=== PATIENT | male | born 1980 | race Caucasian/White ===

== ENCOUNTER 2017-01-20 20:26 | Emergency (ER) | payer BC, OTHER ==
[2017-01-20 20:30] VITALS: BP 140/86; PULSE 93; TEMP 97; BMI 40.1
[2017-01-20] MEDS ORDERED: SODIUM CHLORIDE 0.9% 1000 ML INFUS.BAG IV ONE ×2 (20:52→23:07)
[2017-01-20] MEDS ORDERED: KETOROLAC TROMETHAMINE 30 MG/1 ML VIAL IVPUSH PRN (20:53)
--- NOTE | 2017-01-20 21:04 | PDOC ---
History of Present Illness - General Chief Complaint: Pain Stated Complaint: PAIN Time Seen by Provider: 01/20/17 20:46 History Source: Patient - History of Present Illness Initial Comments: 01/20/17 21:04 Patient is a 36 y.o. male with a PMH of nephrolithiasis who presents with a 2 day h/o sharp non-radiating LLQ pain. Patient states the pain started when he woke up two days previous and has been increasing in severity prompting his visit to the ED. Patient denies any associated fevers, chills, vomiting, nausea , constipation, diarrhea or increased urgency, frequency or hematuria. Patient notes he is tolerating PO intake, however he has a decreased appetite 2/2 to pain. Patient states this pain is consistent with his previous nephrolithiasis pain and notes placement of ureteral stent as well as lithotripsy on prior occasion. NKDA Surgical: Ureteral stent placement Social: 1-2 cigarettes daily, denies alcohol, denies recreational drugs PMD: Dr. George Churchill Past History - Past Medical History Allergies/Adverse Reactions: Allergies Allergy/AdvReac Type Severity Reaction Status Date / Time No Known Allergies Allergy Verified 01/20/17 20:30 Home Medications: Ambulatory Orders NK [No Known Home Medication] 01/20/17 Disorders: Yes (RENAL STONES) - Suicide/Smoking/Psychosocial Hx Smoking Status: No Smoking History: Never smoked Number of Cigarettes Smoked Daily: 0 Review of Systems - Review of Systems Constitutional: No: Chills, Fever Respiratory: No: Shortness of Breath Cardiac (ROS): No: Chest Pain ABD/GI: Yes: Abdominal cramping. No: Constipated, Diarrhea, Nausea, Rectal Bleeding, Vomiting : No: Burning, Dysuria, Frequency, Flank Pain, Urgency *Physical Exam - Vital Signs Last Vital Signs Temp Pulse Resp BP Pulse Ox 97 F L 93 H 18 140/86 99 01/20/17 20:27 01/20/17 20:27 01/20/17 20:27 01/20/17 20:27 01/20/17 20:27 - Physical Exam General Appearance: Yes: Nourished, Obese Respiratory/Chest: positive: Lungs Clear Cardiovascular: positive: S1, S2 Gastrointestinal/Abdominal: positive: Tender (LLQ tenderness ), Soft, Decreased BS. negative: Rebound, Tenderness, Hernia, Mass Musculoskeletal: negative: CVA Tenderness (R), CVA Tenderness (L) Extremity: positive: Normal Capillary Refill, Normal Inspection Neurologic: positive: necktie turner II-XII NML intact, Fully Oriented, Alert, Motor Strength 07/29 ED Treatment Course - LABORATORY CBC & Chemistry Diagram: 01/20/17 21:15 01/20/17 21:15 Medical Decision Making - Medical Decision Making 01/20/17 22:17 Patient is a 36 y.o. male who presents with a 2 day h/o sharp LLQ abdominal pain that radiates to his groin. On PE, patient is hemodynamically stable and has significant TTP in the LLQ but no flank pain and no guarding, rebound, or mass. Patient denies any associated /GI symptoms. As patient has a h/o nephrolithiasis initial clinical suspicion for nephrolithiasis is high, less likely are testicular torsion and hernia (no palpable mass). PLAN: 1. CBC, CMP 2. UA 3. Spiral CT 4. Toradol for pain control 01/20/17 23:14 CT scan shows 2 non-obstructing stones (2-3 mm; 8-9 mm) excluding nephrolithiasis, also Cr 1.2 - no GERARDO; UA/Urine culture pending. 01/21/17 04:42 UA nitrite (-), blood (-), leukocyte esterase pending. Patient discharged with urology follow up and return precautions. *DC/Admit/Observation/Transfer Diagnosis at time of Disposition: Abdominal pain - Discharge Dispostion Disposition: HOME Condition at time of disposition: Good Admit: No - Referrals Referrals: George Churchill [Primary Care Provider] - Genaro Santana MD [Staff Physician] - - Patient Instructions Printed Discharge Instructions: Kidney Stones -- Adult, Percutaneous Nephrolithotomy or Nephrolithotripsy Additional Instructions: Please make an appointment for evaluation with a urologist for further evaluation of your kidney stones. Please return to the Emergency Department for any worsening or concerning symptoms. - Post Discharge Activity Forms/Work/School Notes: Back to Work
[2017-01-20] MEDS ORDERED: KETOROLAC TROMETHAMINE 30 MG/1 ML VIAL ONE (21:08)
[2017-01-20 22:34] LABS: BASOPHIL 0.3 % (0-2.0); EOSINOPHIL 2.7 % (0-4.5); MCH 29.1 pg (25.7-33.7); MCHC 33.6 g/dl (32.0-35.9); MEAN CELL VOLUME 86.6 fl (80-96); NEUTROPHILS 58.3 % (42.8-82.8); PLATELET COUNT 294 K/MM3 (134-434)
[2017-01-20 22:50] LABS: ANION GAP 7 (8-16); BILIRUBIN,TOTAL 1.2 mg/dL (0.2-1.0); CALCIUM 8.7 mg/dL (8.5-10.1); CO2 27 mmol/L (21-32); CREATININE 1.2 mg/dL (0.7-1.3); GLUCOSE,RANDOM 90 mg/dL (74-106); SGOT/AST 55 U/L (15-37); SGPT/ALT 97 U/L (12-78)
[2017-01-20 22:51] LABS: ALK PHOS 90 U/L (45-117); TOT PROT 7.9 g/dl (6.4-8.2)
[2017-01-21 00:28] LABS: URINE APPEARANCE SLCLOUDY; URINE BILIRUBIN NEGATIVE (NEGATIVE); URINE BLOOD NEGATIVE (NEGATIVE); URINE COLOR YELLOW; URINE GLUCOSE (UA) NEGATIVE (NEGATIVE); URINE KETONE NEGATIVE (NEGATIVE); URINE NITRITE NEGATIVE (NEGATIVE); URINE PROTEIN NEGATIVE (NEGATIVE); URINE UROBILINOGEN NEGATIVE mg/dL (0.2-1.0)
[2017-01-21 12:04] LABS: URINE LEUK ESTERASE Negative (NEGATIVE)
== END 2017-01-21 03:30 | disposition home or self-care (01) ==
LOC: JER 20:26
PROC: 3E0333Z Introduction of Anti-inflammatory into Peripheral Vein, Percutaneous Approach (ICD-10-PCS; principal; 2017-01-20)
DX: N20.0 Calculus of kidney (principal); Z87.442 Personal history of urinary calculi
CPT/HCPCS: 36415; 74176; 80053; 81003; 85025; 87086; 99283-25

== ENCOUNTER 2018-03-08 22:56 | Emergency (ER) | payer BC ==
[2018-03-08 23:05] VITALS: BP 148/73; PULSE 83; TEMP 97.3; BMI 40.1
--- NOTE | 2018-03-08 23:18 | PDOC ---
History of Present Illness - General Chief Complaint: Pain, Acute Stated Complaint: RIGHT SIDE PAIN Time Seen by Provider: 03/08/18 23:17 Past History - Past Medical History Allergies/Adverse Reactions: Allergies Allergy/AdvReac Type Severity Reaction Status Date / Time No Known Allergies Allergy Verified 03/08/18 23:06 Home Medications: Ambulatory Orders NK [No Known Home Medication] 01/20/17 COPD: No Disorders: Yes (RENAL STONES) - Suicide/Smoking/Psychosocial Hx Smoking Status: No Smoking History: Never smoked Have you smoked in the past 12 months: No Number of Cigarettes Smoked Daily: 0 Information on smoking cessation initiated: No Hx Alcohol Use: No Drug/Substance Use Hx: No *Physical Exam - Vital Signs Last Vital Signs Temp Pulse Resp BP Pulse Ox 97.3 F L 83 16 148/73 100 03/08/18 23:03 03/08/18 23:03 03/08/18 23:03 03/08/18 23:03 03/08/18 23:03 Moderate Sedation - Procedure Monitoring Vital Signs: Procedure Monitoring Vital Signs Temperature 97.3 F L 03/08/18 23:03 Pulse Rate 83 03/08/18 23:03 Respiratory Rate 16 03/08/18 23:03 Blood Pressure 148/73 03/08/18 23:03 O2 Sat by Pulse Oximetry (%) 100 03/08/18 23:03 *DC/Admit/Observation/Transfer - Referrals Referrals: George Churchill [Primary Care Provider] - - Patient Instructions - Post Discharge Activity
--- NOTE | 2018-03-08 23:43 | PDOC ---
Attending Attestation - HPI HPI: 03/08/18 23:46 The patient is a 37 year old male, with a significant PMH of kidney stones, who presents to the emergency department with 2 days of intermittent right sided flank pain. The patient describes the right sided flank pain as sharp, rated 8/ 10 in intensity, non radiating, with associated nausea, dysuria and frequency. The patient states he took Advil for the right sided flank pain with minimal relief so he decided to come to the ED for evaluation. The patient reports a history of kidney stones for which he states feels exactly the same. The patient denies chest pain, shortness of breath, headache and dizziness. Denies fever, chills, vomit, diarrhea and constipation. Denies urgency and hematuria. Allergies: NKA Documentation prepared by Gamal Reinoso, acting as medical housekeeper for Harry Mandujano MD. <Gamal Reinoso - Last Filed: 03/08/18 23:46> - Resident Resident Name: Lima Estrada - ED Attending Attestation I have performed the following: I have examined & evaluated the patient, The case was reviewed & discussed with the resident, I agree w/resident's findings & plan, Exceptions are as noted - Physicial Exam PE: 03/09/18 00:35 Patient is awake and alert, morbidly obese, in mild distress Normocephalic, atraumatic PERRLA, EOMI, no scleral icterus CTA RRR Abdomen soft, right lower quadrant tenderness is noted, + small umbilical hernia , easily reducible; no guarding or rebound; no CVA tenderness bilaterally no abnormality; - Medical Decision Making 03/09/18 00:36 37-year-old male with history of nephrolithiasis presents with right lower quadrant pain radiating to the right flank. Differential diagnosis includes nephrolithiasis versus acute appendicitis versus colitis. We'll administer Toradol, will hydrate; we'll obtain CT that and pelvis. Will reassess. <Harry Mandujano - Last Filed: 03/09/18 00:36>
--- NOTE | 2018-03-08 23:43 | PDOC ---
History of Present Illness - General Chief Complaint: Pain, Acute Stated Complaint: RIGHT SIDE PAIN Time Seen by Provider: 03/08/18 23:17 - History of Present Illness Initial Comments: 03/08/18 23:39 Patient is a 37 year old male with past medical history of bilateral nephrolithiais s/p ?right ureteral stent placement and lithotripsy about 15 years ago, presented with 2 day history of RLQ pain radiating to the right flank. Patient was seen a year ago at the ED for LLQ pain, where spiral CT was done which showed nonobstructive bilateral nephrolithiasis. He was discharged with instructions to follow-up with the urologist, to which patient was not able to do as pain resolved spontaneously. Two days ago, patient noted 8/10 sharp RLQ pain radiating to the right flank area. Denies fever, chills, nausea, vomiting, chest pain, SOB, palpitations, diarrhea, constipation, urinary symptoms. Past History - Past Medical History Allergies/Adverse Reactions: Allergies Allergy/AdvReac Type Severity Reaction Status Date / Time No Known Allergies Allergy Verified 03/08/18 23:06 Home Medications: Ambulatory Orders Ibuprofen [Motrin -] 600 mg PO QID PRN #12 tablet 03/09/18 COPD: No Disorders: Yes (RENAL STONES) - Suicide/Smoking/Psychosocial Hx Smoking Status: No Smoking History: Never smoked Have you smoked in the past 12 months: No Number of Cigarettes Smoked Daily: 0 Information on smoking cessation initiated: No Hx Alcohol Use: No Drug/Substance Use Hx: No Review of Systems - Review of Systems Constitutional: No: Chills, Fever, Weakness HEENTM: No: Recent change in vision, Nose Congestion, Difficulty Swallowing Respiratory: No: Cough, Shortness of Breath Cardiac (ROS): No: Chest Pain, Lightheadedness, Palpitations ABD/GI: No: Constipated, Diarrhea, Nausea, Vomiting : No: Burning, Dysuria, Discharge *Physical Exam - Vital Signs Last Vital Signs Temp Pulse Resp BP Pulse Ox 97.3 F L 83 16 148/73 100 03/08/18 23:03 03/08/18 23:03 03/08/18 23:03 03/08/18 23:03 03/08/18 23:03 - Physical Exam Comments: 03/08/18 23:57 General: awake, alert, oriented, not in acute distress Head: no signs of head trauma HEENT: PERRLA, EOMI, sclerae anicteric, no nasal discharge, non-erythematous oropharynx, moist mucous membranes Neck: soft, supple, trachea midline, without thyroid enlargement Lungs: clear to auscultation bilaterally Heart: regular rate and rhythm, normal S1/S2, no m,r,g Abdomen: soft, obese, +RLQ tenderness on deep palpation, nondistended, NABS, no guarding, +Right flank tenderness Ext: +2 pulses, no peripheral edema, cyanosis or clubbing Moderate Sedation - Procedure Monitoring Vital Signs: Procedure Monitoring Vital Signs Temperature 97.3 F L 03/08/18 23:03 Pulse Rate 83 03/08/18 23:03 Respiratory Rate 16 03/08/18 23:03 Blood Pressure 148/73 03/08/18 23:03 O2 Sat by Pulse Oximetry (%) 100 03/08/18 23:03 ED Treatment Course - LABORATORY CBC & Chemistry Diagram: 03/09/18 00:15 03/09/18 00:15 Medical Decision Making - Medical Decision Making 03/09/18 00:09 Patient is a 37 year old male with past medical history of bilateral nephrolithiasis presented with 2-day history of RLQ pain radiating to the right flank. DDx include but not limited to nephrolithiasis, appendicitis, SBO CBC, CMP UA, urine culture spiral CT IV ketorolac 15 mg IV NS 03/09/18 05:[address]- 8mm obstructing stone on the ureterovesical junction Iv morphine given Patient reported minimal pain. Will call urology for dispo. 03/09/18 05:[address] Santana, urology television anchor. Patient okay for dispo. Will see patient in his office today. *DC/Admit/Observation/Transfer Diagnosis at time of Disposition: Nephrolithiasis - Discharge Dispostion Disposition: HOME Condition at time of disposition: Stable Decision to Admit order: No - Prescriptions Prescriptions: Ibuprofen [Motrin -] 600 mg PO QID PRN #12 tablet PRN Reason: Pain - Referrals Referrals: George Churchill [Primary Care Provider] - Genaro Santana MD [Staff Physician] - (Spoke to Dr. Hidalgo earlier at the ED. Scheduled patient for follow-up today. ) - Patient Instructions Printed Discharge Instructions: Kidney Stones -- Adult Additional Instructions: You were seen because you had belly pain. CAT scan showed that you have a stone obstructing the urinary tract. Take Motrin every 6 hours as needed for pain. Follow-up with the urologist, Dr. Santana, today at his office. Call 911 or go to the ED if with any worsening belly pain, fever, chills, headache, dizziness, shortness of breath, chest pain or any new concerns noted. - Post Discharge Activity Forms/Work/School Notes: Back to Work
[2018-03-08] MEDS ORDERED: KETOROLAC TROMETHAMINE 15 MG/ML VIAL IVPUSH ONE (23:50)
[2018-03-08] MEDS ORDERED: SODIUM CHLORIDE 1,000 ML IV STA (23:58)
[2018-03-08] MEDS ORDERED: KETOROLAC TROMETHAMINE 15 MG/ML VIAL ONE (23:59)
[2018-03-09] MEDS ORDERED: KETOROLAC TROMETHAMINE 15 MG/ML VIAL ONE (00:01)
[2018-03-09 01:09] LABS: BASO % 0.2 % (0-2.0); EOS % 3.9 % (0-4.5); HEMATOCRIT 40.5 % (35.4-49); HEMOGLOBIN 13.8 GM/dL (11.7-16.9); LYMPH % 26.6 % (8-40); MCHC 34.1 g/dl (32.0-35.9); MEAN CELL VOLUME 87.8 fl (80-96); MEAN PLT VOLUME 8.1 fl (7.5-11.1); MONO % 11.1 % (3.8-10.2); NEUT % 58.2 % (42.8-82.8); PLATELET COUNT 269 K/MM3 (134-434); RBC 4.61 M/mm3 (4.00-5.60); RDW 13.6 % (11.9-15.9); WHITE BLOOD COUNT 13.1 K/mm3 (4.0-10.0)
[2018-03-09 01:35] LABS: ALBUMIN 3.5 g/dl (3.4-5.0); ALK PHOS 134 U/L (45-117); ANION GAP 7 MMOL/L (8-16); BILIRUBIN,TOTAL 0.4 mg/dL (0.2-1); BLOOD UREA NITROGEN 11 mg/dL (7-18); CALCIUM 8.7 mg/dL (8.5-10.1); CHLORIDE 104 mmol/L (98-107); CO2 27 mmol/L (21-32); CREATININE 1.2 mg/dL (0.55-1.3); GLUCOSE,RANDOM 170 mg/dL (74-106); POTASSIUM 4.3 mmol/L (3.5-5.1); SGOT/AST 43 U/L (15-37); SGPT/ALT 70 U/L (13-61); SODIUM 138 mmol/L (136-145); TOT PROT 7.3 g/dl (6.4-8.2)
[2018-03-09] MEDS ORDERED: morphine CARPU-JECT 4 MG/1 ML DISP.SYRIN IVPUSH ONE (02:18)
[2018-03-09] MEDS ORDERED: morphine SULFATE 4 MG/ML VIAL ONE (02:29)
[2018-03-09 04:10] LABS: URINE APPEARANCE CLEAR; URINE BILIRUBIN NEGATIVE (<2.0 mg/dL); URINE COLOR YELLOW; URINE GLUCOSE (UA) NEGATIVE (NEGATIVE); URINE KETONE NEGATIVE (NEGATIVE); URINE LEUK ESTERASE NEGATIVE (NEGATIVE); URINE NITRITE NEGATIVE (NEGATIVE); URINE PROTEIN NEGATIVE (NEGATIVE); URINE UROBILINOGEN NEGATIVE mg/dL (0.2-1.0)
== END 2018-03-09 06:44 | disposition home or self-care (01) ==
LOC: JER 22:56
PROC: 3E0333Z Introduction of Anti-inflammatory into Peripheral Vein, Percutaneous Approach (ICD-10-PCS; principal; 2018-03-08)
PROC: 3E033NZ Introduction of Analgesics, Hypnotics, Sedatives into Peripheral Vein, Percutaneous Approach (ICD-10-PCS; 2018-03-08)
PROC: 3E0337Z Introduction of Electrolytic and Water Balance Substance into Peripheral Vein, Percutaneous Approach (ICD-10-PCS; 2018-03-08)
DX: N20.0 Calculus of kidney (principal)
CPT/HCPCS: 36415; 74176; 80053; 81003; 85025; 87086; 99281-25; J7030

== ENCOUNTER 2019-05-06 22:04 | Emergency (ER) | payer BC ==
[2019-05-06 22:27] VITALS: TEMP 98.2; BMI 44.8
--- NOTE | 2019-05-07 00:06 | PDOC ---
*Physical Exam - Vital Signs Last Vital Signs Temp Pulse Resp BP Pulse Ox 98.2 F 80 19 127/76 100 05/06/19 22:24 05/06/19 22:24 05/06/19 22:24 05/06/19 22:24 05/06/19 22:24 ED Treatment Course - LABORATORY CBC & Chemistry Diagram: 05/07/19 01:30 05/07/19 00:26 Medical Decision Making - Medical Decision Making 05/07/19 00:05 Patient seen by the advanced practice provider under my supervision. Ancillary testing reviewed as necessary. I agree with plan as outlined by the advanced practice provider. Discharge - Discharge Information Problems reviewed: Yes Clinical Impression/Diagnosis: Chest pain Qualifiers: Chest pain type: unspecified Qualified Code(s): R07.9 - Chest pain, unspecified Disposition: HOME - Follow up/Referral Referrals: George Churchill [Primary Care Provider] - - Patient Discharge Instructions Patient Printed Discharge Instructions: DI for Chest Pain Additional Instructions: It is very important that you follow-up with your electric frying pan repairer/PCP as soon as possible.-year-old work-up was negative for any acute heart problems Return to the emergency room for any worsening symptoms - Post Discharge Activity Work/Back to School Note: Back to Work
[2019-05-07] MEDS ORDERED: ASPIRIN 81 MG CHEWABLE TABLETS PO ONE (00:26)
--- NOTE | 2019-05-07 00:26 | PDOC ---
History of Present Illness - General Chief Complaint: Chest Pain Stated Complaint: CHEST PAIN Time Seen by Provider: 05/07/19 00:04 History Source: Patient - History of Present Illness Initial Comments: 05/07/19 00:37 38-year-old male with no past medical history complaining of midsternal chest pain for the last 2 days. Patient reports slight nausea. Denies nausea vomiting vomiting, dizziness, diaphoresis, trauma or injury, heavy lifting. No past medical history Past History - Past Medical History Allergies/Adverse Reactions: Allergies Allergy/AdvReac Type Severity Reaction Status Date / Time No Known Allergies Allergy Verified 03/08/18 23:06 Home Medications: Ambulatory Orders Ibuprofen [Motrin -] 600 mg PO QID PRN #12 tablet 03/09/18 COPD: No Disorders: Yes (RENAL STONES) - Psycho Social/Smoking Cessation Hx Smoking Status: No Smoking History: Never smoked Have you smoked in the past 12 months: No Number of Cigarettes Smoked Daily: 0 Hx Alcohol Use: No Drug/Substance Use Hx: No *Physical Exam - Vital Signs Last Vital Signs Temp Pulse Resp BP Pulse Ox 98.2 F 80 19 127/76 100 05/06/19 22:24 05/06/19 22:24 05/06/19 22:24 05/06/19 22:24 05/06/19 22:24 - Physical Exam General Appearance: Yes: Appropriately Dressed Respiratory/Chest: positive: Lungs Clear, Normal Breath Sounds. negative: Chest Tender Cardiovascular: positive: Regular Rhythm, Regular Rate Gastrointestinal/Abdominal: positive: Normal Bowel Sounds, Soft Extremity: positive: Normal Capillary Refill, Normal Inspection, Normal Range of Motion Integumentary: positive: Normal Color, Dry, Warm Neurologic: positive: Fully Oriented, Alert, Normal Mood/Affect ED Treatment Course - LABORATORY CBC & Chemistry Diagram: 05/07/19 01:30 05/07/19 00:26 Medical Decision Making - Medical Decision Making A: chest enid P: cbc cmp cardiac EKG: NSR chest xray: neg official read pending Discharge - Discharge Information Problems reviewed: Yes Clinical Impression/Diagnosis: Chest pain Qualifiers: Chest pain type: unspecified Qualified Code(s): R07.9 - Chest pain, unspecified Condition: Stable Disposition: HOME - Follow up/Referral Referrals: George Churchill [Primary Care Provider] - - Patient Discharge Instructions Patient Printed Discharge Instructions: DI for Chest Pain Additional Instructions: It is very important that you follow-up with your central scheduler/PCP as soon as possible.-year-old work-up was negative for any acute heart problems Return to the emergency room for any worsening symptoms - Post Discharge Activity Work/Back to School Note: Back to Work
[2019-05-07 01:47] LABS: HEMOGLOBIN 14.6 GM/dL (11.7-16.9)
[2019-05-07 01:50] LABS: BASO % 0.2 % (0-2.0); EOS % 3.4 % (0-4.5); HEMATOCRIT 43.2 % (35.4-49); LYMPH % 34.6 % (8-40); MCH 29.7 pg (25.7-33.7); MCHC 33.9 g/dl (32.0-35.9); MEAN CELL VOLUME 87.7 fl (80-96); MEAN PLT VOLUME 7.7 fl (7.5-11.1); MONO % 9.4 % (3.8-10.2); NEUT % 52.4 % (42.8-82.8); PLATELET COUNT 277 K/MM3 (134-434); RBC 4.93 M/mm3 (4.00-5.60); RDW 13.7 % (11.9-15.9); WHITE BLOOD COUNT 11.5 K/mm3 (4.0-10.0)
[2019-05-07 02:03] LABS: INR 0.97 (0.83-1.09); PROTHROMBIN TIME (PATIENT) 11.5 SEC (9.7-13.0)
[2019-05-07 02:06] LABS: ACTIVATED PTT 33.3 SECONDS (25.2-36.5)
[2019-05-07 02:31] LABS: ALBUMIN 3.7 g/dl (3.4-5.0); ALK PHOS 79 U/L (45-117); ANION GAP 7 MMOL/L (8-16); BILIRUBIN,TOTAL 0.7 mg/dL (0.2-1); BLOOD UREA NITROGEN 11.8 mg/dL (7-18); CALCIUM 8.7 mg/dL (8.5-10.1); CHLORIDE 104 mmol/L (98-107); CO2 27 mmol/L (21-32); CREATININE 1.1 mg/dL (0.55-1.3); GLUCOSE,RANDOM 89 mg/dL (74-106); MAGNESIUM 1.9 mg/dL (1.8-2.4); POTASSIUM 3.9 mmol/L (3.5-5.1); SGOT/AST 25 U/L (15-37); SGPT/ALT 44 U/L (13-61); SODIUM 138 mmol/L (136-145); TOT PROT 7.5 g/dl (6.4-8.2)
[2019-05-07 03:26] VITALS: BP 124/80; PULSE 82
--- NOTE | 2019-05-07 13:02 | EKG ---
Test Reason : Blood Pressure : / mmHG Vent. Rate : 073 BPM Atrial Rate : 073 BPM P-R Int : 134 ms QRS Dur : 088 ms QT Int : 378 ms P-R-T Axes : 035 029 018 degrees QTc Int : 416 ms NORMAL SINUS RHYTHM NORMAL ECG Confirmed by James Carver MD ([id number]) on 05/07/2019 1:01:56 PM Referred By: Confirmed By:James Carver MD
== END 2019-05-07 03:25 | disposition home or self-care (01) ==
LOC: JER 22:04
DX: R07.9 Chest pain, unspecified (principal)
CPT/HCPCS: 36415; 71046-TC-FY; 80053; 82550; 83735; 84484; 85025; 85610; 85730; 93005; 93010; 99285-25

== ENCOUNTER 2019-10-19 11:02 | Emergency (ER) | payer BC ==
[2019-10-19 11:13] VITALS: BP 138/82; PULSE 67; TEMP 97.8; BMI 42.0
[2019-10-19] MEDS ORDERED: ACETAMINOPHEN 325 MG TABLET (FP) PO ONE (11:47)
--- NOTE | 2019-10-19 12:14 | PDOC ---
History of Present Illness - General Chief Complaint: Chest Pain Stated Complaint: CHEST PAIN Time Seen by Provider: 10/19/19 11:41 History Source: Patient Exam Limitations: No Limitations - History of Present Illness Initial Comments: 10/19/19 11:58 39M PMH sleep apnea, kidney stones, obesity p/w acute on chronic chest pain. Has had negative work up by PCP, cards, rheum, neuro, and he want to make a GI appointment. Has had this pain for 5 months. Intermittent, left anterior chest, aching, occasional "electric waves" that last for a few seconds, sometimes associated with SOB and left arm "muscle" pain. 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 Dad from [place] at 63. Denies n/v, diaphoresis, leg pain. GENERAL/CONSTITUTIONAL: No fever or chills. No weakness. HEAD, EYES, EARS, NOSE AND THROAT: No change in vision. No ear pain or discharge. No sore throat. CARDIOVASCULAR: +chest pain and SOB RESPIRATORY: No cough, wheezing, or hemoptysis. GASTROINTESTINAL: No nausea, vomiting, diarrhea or constipation. GENITOURINARY: No dysuria, frequency, or change in urination. MUSCULOSKELETAL: No neck or back pain. SKIN: No rash NEUROLOGIC: No headache, vertigo, loss of consciousness, or change in strength/sensation. ENDOCRINE: No increased thirst. No abnormal weight change HEMATOLOGIC/LYMPHATIC: No anemia, easy bleeding, or history of blood clots. ALLERGIC/IMMUNOLOGIC: No hives or skin allergy. PE Vital Signs Period Temp Pulse Resp BP Sys/Louise Pulse Ox Last 24 Hr 97.8 F 67 18 138/82 99 GENERAL: Awake, alert, and fully oriented, in no acute distress HEAD: No signs of trauma, normocephalic, atraumatic EYES: PERRLA, EOMI, sclera anicteric, conjunctiva clear ENT: Auricles normal inspection, hearing grossly normal, nares patent, oropharynx clear without exudates. Moist mucosa NECK: Normal ROM, supple, no lymphadenopathy, JVD, or masses LUNGS: No distress, speaks full sentences, clear to auscultation bilaterally HEART: Regular rate and rhythm, normal S1 and S2, no murmurs, rubs or gallops, peripheral pulses normal and equal bilaterally. Chest Wall: reproducible tenderness on anterior left chest ABDOMEN: Soft, nontender, normoactive bowel sounds. No guarding, no rebound. No masses EXTREMITIES : Normal inspection, Normal range of motion, no edema. No clubbing or cyanosis. Right arm not swollen or tender. NEUROLOGICAL: ormal speech, normal gait, no focal sensorimotor deficits SKIN: Warm, Dry, normal turgor, no rashes or lesions noted A/P 39M PMH sleep apnea, kidney stones, obesity p/w acute on chronic chest pain. EKG NSR w/o ischemic changes. History not concerning for cardiac CP, and pain reproducible with palpation. -DC with f/u and return precautions 10/19/19 12:20 Past History - Medical History Allergies/Adverse Reactions: Allergies Allergy/AdvReac Type Severity Reaction Status Date / Time No Known Allergies Allergy Verified 10/19/19 11:09 Home Medications: Ambulatory Orders Ibuprofen [Motrin -] 600 mg PO QID PRN #12 tablet 03/09/18 COPD: No Disorders: Yes (RENAL STONES) - Psycho-Social/Smoking History Smoking Status: No Smoking History: Former smoker Have you smoked in the past 12 months: No Number of Cigarettes Smoked Daily: 1 If you are a former smoker, when did you quit?: 2009 Information on smoking cessation initiated: No - Substance Abuse Hx (Audit-C & DAST Scrn) How often the patient has a drink containing alcohol: Never Score: In Men: 4 or > Positive; In Women: 3 or > Positive: 0 Screen Result (Pos requires Nsg. Audit-10AR): Negative In the last yr the pt used illegal drug/Rx for NonMed reason: No Score: Yes response is considered Positive: 0 Screen Result (Positive result requires Nsg. DAST-10): Negative *Physical Exam - Vital Signs Last Vital Signs Temp Pulse Resp BP Pulse Ox 97.8 F 67 18 138/82 99 10/19/19 11:09 10/19/19 11:09 10/19/19 11:09 10/19/19 11:09 10/19/19 11:09 Discharge - Discharge Information Problems reviewed: Yes Clinical Impression/Diagnosis: Chest pain Qualifiers: Chest pain type: other chest pain Qualified Code(s): R07.89 - Other chest pain; R07.8 - Other chest pain Condition: Good Disposition: HOME - Admission No - Follow up/Referral Referrals: Lupillo Amin MD [Primary Care Provider] - - Patient Discharge Instructions Patient Printed Discharge Instructions: DI for Atypical Chest Pain Additional Instructions: You were seen in the ER for chest pain. You stated this was the same pain you have had for 5 months, and it was reproducible when we pressed on it. Your EKG was normal. We do not know what is causing your pain. You should follow up with your primary doctor and go for your cardiac MRI. Please seek emergent care if you have persistent or worsening symptoms - Post Discharge Activity
--- NOTE | 2019-10-19 12:29 | PDOC ---
Documentation entered by Thony Madera SCRIBE, acting as scribe for Arti Stock MD. Arti Stock MD: This documentation has been prepared by the Cassy walters Aaron, SCRIBE, under my direction and personally reviewed by me in its entirety. I confirm that the documentation accurately reflects all work, treatment, procedures, and medical decision making performed by me. Attending Attestation - Resident Resident Name: RocHaim - ED Attending Attestation I have performed the following: I have examined & evaluated the patient, The case was reviewed & discussed with the resident, I agree w/resident's findings & plan, Exceptions are as noted - HPI HPI: 10/19/19 12:09 The patient is a 39 year old male with a significant PMH of sleep apnea and kidney stones who presents to the emergency department for chest pain x5 months. Patient describes pain as beginning 5 months ago and has since been seen by a quality control operator, neurologist, and callisthenics instructor. Patient claims pain is non-exer tional, unchanged for the past 5 months and does not change with position or rest. Echo and stress test were both negative. Patient also endorses L arm pain alleviated by moving and massage. Patient has f/u with a quality control operator for a cardiac MRI. Patient reports pain is intermittent. The patient denies vomiting and diaphoresis. Patient denies other related symptoms. Allergies: NKDA PCP: Dr. Mark Amin - Physicial Exam PE: 10/19/19 12:24 General: comfortable appearing Chest: CTAB, good air entry, no wheezes rales or rhonchi, + L upper anterior chest wall tenderness reproduces complaint CVS: + s1 s2, RRR no m/r/g - Medical Decision Making 10/19/19 12:27 39 yo M with atypical chest pain, multiple negative workups and patient has scheduled cardiac MRI with quality control operator due to persistence of symptoms and obesity, likely msk pain, doubt ACS as pain is atypical, workup thus far from outside providers negative and EKG NSR without ischemic changes. Plan: -tylenol -d/c with return precautions, recommend f/u with quality control operator at previously scheduled appt and tylenol at home as needed for pain This clinical encounter is taking place during a federal and state health care emergency attributable to the novel [place] Virus pandemic. The [employer] of the Department of Health and Human Services has declared, pursuant to the Public Health Service Act 319F-3 (42 U.S.C. 247d-6d), that a covered persons activities related to medical countermeasures against COVID-19 will be immune from liability under Federal and State law. Discharge - Discharge Information Problems reviewed: Yes Clinical Impression/Diagnosis: Chest pain Qualifiers: Chest pain type: other chest pain Qualified Code(s): R07.89 - Other chest pain Condition: Good Disposition: HOME - Follow up/Referral Referrals: Lupillo Amin MD [Primary Care Provider] - - Patient Discharge Instructions Patient Printed Discharge Instructions: DI for Atypical Chest Pain Additional Instructions: You were seen in the ER for chest pain. You stated this was the same pain you have had for 5 months, and it was reproducible when we pressed on it. Your EKG was normal. We do not know what is causing your pain. You should follow up with your primary doctor and go for your cardiac MRI. Please seek emergent care if you have persistent or worsening symptoms - Post Discharge Activity
--- NOTE | 2019-10-20 17:30 | EKG ---
Test Reason : Blood Pressure : / mmHG Vent. Rate : 067 BPM Atrial Rate : 067 BPM P-R Int : 126 ms QRS Dur : 090 ms QT Int : 394 ms P-R-T Axes : 040 027 018 degrees QTc Int : 416 ms NORMAL SINUS RHYTHM NORMAL ECG WHEN COMPARED WITH ECG OF 06-MAY-2019 22:40, NO SIGNIFICANT CHANGE WAS FOUND Confirmed by MD Hamilton Edward ([id number]) on 10/20/2019 5:29:36 PM Referred By: Confirmed By:Lele Hamilton MD
== END 2019-10-19 12:24 | disposition home or self-care (01) ==
LOC: JER 11:02
DX: R07.89 Other chest pain (principal)
CPT/HCPCS: 93005; 93010; 99284-25

== ENCOUNTER 2020-07-14 10:46 | Emergency (ER) | payer BC ==
[2020-07-14 11:08] VITALS: BP 154/90; PULSE 87; TEMP 97.9; BMI 42.8
== END 2020-07-14 12:17 | disposition home or self-care (01) ==
LOC: JER 10:46
DX: J06.9 Acute upper respiratory infection, unspecified (principal)
CPT/HCPCS: 99284-25; C9803; U0003; U0005